=== PATIENT | female | born 1950 | race Caucasian/White ===

== ENCOUNTER 2017-07-21 07:32 | Inpatient (IN) | payer OTHER ==
[~2017-07-21] VITALS: Ht 152.4 cm; Wt 59.9 kg
[2017-07-21 07:42] VITALS: BP 166/88
--- NOTE | 2017-07-21 07:55 | NUR ---
PATIENT IN BED. C/O ABDOMINAL PAIN 05/02. VS STABLE. MD NOTIFIED. CONTINUE TO MONITOR.
--- NOTE | 2017-07-21 07:57 | NUR ---
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
[2017-07-21] MEDS ORDERED: BENA20TA PO (07:59)
[2017-07-21] MEDS ORDERED: CHOL5000 PO (07:59)
[2017-07-21] MEDS ORDERED: SYN.075 PO (07:59)
[2017-07-21] MEDS ORDERED: ASPI-1677 PO (07:59)
[2017-07-21] MEDS ORDERED: METO25TE2 PO (07:59)
[2017-07-21] MEDS ORDERED: ESCI10TA PO (07:59)
[2017-07-21] MEDS ORDERED: SINE25 PO (07:59)
[2017-07-21] MEDS ORDERED: ATOR40TA PO (07:59)
[2017-07-21] MEDS ORDERED: ALPR0.252 PO (07:59)
[2017-07-21] MEDS ORDERED: LOPE2TAB42 PO (08:05)
--- NOTE | 2017-07-21 08:36 | NUR ---
DR DAHL AT BEDSIDE.
[2017-07-21] MEDS ORDERED: ONDANSETRON 4 MG/2 ML VIAL IVP ONE (08:45)
[2017-07-21] MEDS ORDERED: fentaNYL 0.05 MG/ML VIAL IVP ONE ×2 (08:45→10:45)
[2017-07-21] MEDS ORDERED: NACL 0.9% 1,000 ML IV ONE ×2 (08:45→10:45)
[2017-07-21 09:12] LABS: BASOPHILS # (AUTO) 0.2 K/uL (0.00-0.22); BASOPHILS % (AUTO) 3.3 % (0.0-2.0); EOSINOPHILS % (AUTO) 0.1 % (0.0-4.0); HEMOGLOBIN 14.4 g/dL (12.0-16.0); LYMPHOCYTES # (AUTO) 1.7 K/uL (2.5-16.5); MEAN CORPUSCULAR HEMOGLOBIN 30 pg (27-31); MEAN CORPUSCULAR HGB CONC 33 g/dL (33-37); MEAN CORPUSCULAR VOLUME 91 fL (80-94); MONOCYTES % (AUTO) 14.7 % (1.7-9.3); NEUTROPHILS # (AUTO) 3.6 K/uL (1.8-7.7); NEUTROPHILS % (AUTO) 55.9 % (42.2-75.2); PLATELET COUNT (AUTO) 221 K/uL (140-450); RED BLOOD CELL COUNT(AUTO) 4.81 MIL/uL (4.20-5.40); RED CELL DISTRIBUTION WIDTH 12.8 % (11.6-13.7); WHITE BLOOD COUNT (AUTO) 6.5 K/uL (4.8-10.8)
[2017-07-21 09:33] LABS: ALBUMIN 3.3 g/dL (3.4-5.0); ANION GAP 17.7 (8-16); CARBON DIOXIDE 19.7 mmol/L (21-32); CREATININE 1.1 mg/dL (0.6-1.3); POTASSIUM 3.4 mmol/L (3.5-5.1); TOTAL BILIRUBIN 0.4 mg/dL (0.0-1.0)
[2017-07-21 10:07] LABS: PROTHROMBIN TIME 11.4 secs (10.8-13.4)
[2017-07-21] MEDS ORDERED: ASPIRIN 81 MG TAB.CHEW PO ONE (10:10)
--- NOTE | 2017-07-21 10:34 | NUR ---
PT RESTING ON BED;NO ACUTE DISTRESS NOTE;WILL CONTINUE TO MONITOR PT.
[2017-07-21 10:55] LABS: APPEARANCE,URINE CLEAR (CLEAR); BILIRUBIN,URINE 2+ (NEGATIVE); BLOOD, URINE 1+ (NEGATIVE); COLOR,URINE YELLOW (YELLOW); LEUKOCYTE ESTERASE ,URINE NEGATIVE (NEGATIVE); NITRITE, URINE NEGATIVE (NEGATIVE); PH,URINE 5.5 (5.0-9.0); UGLUCOSE NEGATIVE (NEGATIVE)
[2017-07-21 11:11] LABS: RBC,URINE 0-5 (RARE) /HPF (0-5); WBC,URINE 0-5 (RARE) /HPF (0-5)
[2017-07-21] MEDS ORDERED: ONDANSETRON 4 MG/2 ML VIAL IVP PRN (11:30)
[2017-07-21] MEDS ORDERED: ACETAMINOPHEN 325 MG TAB PO PRN (11:30)
[2017-07-21] MEDS: NACL 0.9% 1,000 ML IV SCH ×2 (11:30→21:35)
[2017-07-21] MEDS ORDERED: HYDROcodone/APAP 7.5/325 MG 1 TAB PO PRN (11:30)
[2017-07-21] MEDS ORDERED: NITROGLYCERIN 0.4 MG TAB SL PRN (11:35)
[2017-07-21] MEDS ORDERED: DICYCLOMINE HCL LIQUID 10 MG/5 ML UDC PO SCH (11:55)
[2017-07-21] MEDS ORDERED: LIDOCAINE VISCOUS 2% 20 ML UDC PO SCH (11:55)
[2017-07-21] MEDS ORDERED: MORPHINE SULFATE 2 MG/ML SYR IVP PRN (11:55)
[2017-07-21] MEDS ORDERED: ALUMINUM HYD/MAG/SIMETHICONE 30 ML UDC PO SCH (11:55)
--- NOTE | 2017-07-21 12:49 | NUR ---
PT LYING ON BED;SISTER AT BEDSIDE;IVF STILL INFUSING;NO ACUTE DISTRESS NOTED;WILL CONTINUE TO MONITOR PT.
--- NOTE | 2017-07-21 13:29 | NUR ---
PER SMALL STOCK FACER;WE ARE STILL WAITING FOR A BED;
[2017-07-21] MEDS ORDERED: POTASSIUM CHLORIDE 10 MEQ TABER PO SCH (13:43)
[2017-07-21 13:49] LABS: BARBITURATE, URINE NEG. ng/ml (NEG <=200); BENZODIAZEPINE, URINE POS. ng/mL (NEG <=200); CANNABINOID, URINE POS. ng/mL (NEG <=50); COCAINE, URINE NEG. ng/mL (NEG <=300); OPIATE, URINE NEG. ng/mL (NEG <=2000); PHENCYCLIDINE SCREEN,URINE NEG. ng/mL (NEG <=25)
--- NOTE | 2017-07-21 13:50 | NUR ---
ADMITTED FROM ER VIA GURNEY. AWAKE, ALERT, AND ORIENTED X4. SPEECH CLEAR. NO C/O PAIN. NO SOB, NOTED. SKIN WARM, DRY, AND INTACT. IN STABLE CONDITION. KEEP COMFORTABLE ON BED. EXPLAINED DIAGNOSIS, PLAN OF CARE, PAIN MANAGEMENT TEACHING, USE OF CALL LIGHT/BED/TV/BATHROOM. VERBALIZED UNDERSTANDING. FALL PRECAUTION APPLIED. CALL LIGHT WITHIN REACH.
[2017-07-21 13:51] LABS: CHOL/HDL RATIO 2.4 (1-4.5); FREE T4 (FREE THYROXINE) 1.51 ng/dL (0.76-1.46); MAGNESIUM 1.7 mg/dL (1.8-2.4); PHOSPHORUS 2.8 mg/dL (2.5-4.9); THYROID STIMULATING HORMONE 0.25 uIU/mL (0.34-3.74)
[2017-07-21 14:00] VITALS: BP 155/88
--- NOTE | 2017-07-21 14:01 | NUR ---
Patient will be admitted to care of DR GILL. Admited to TELE. Will go to [id number]. Belongings list completed. Report to CARMEN THOMASON.
--- NOTE | 2017-07-21 15:38 | NUR ---
DR. DOVE CAME, REVIEWED PT. CHART AND SEEN PT.. INFORMED DR. DOVE PT. FIRST DRAW OF TROP 0.091.
[2017-07-21 16:00] VITALS: BP 150/86
[2017-07-21] MEDS: KETOROLAC 30 MG/ML VIAL IVP PRN (17:27)
--- NOTE | 2017-07-21 19:08 | NUR ---
BEDSIDE REPORT GIVEN TO MARIA M MUNIZ -PADDY. IVF INFUSING WELL. IN STABLE CONDITION.
--- NOTE | 2017-07-21 19:10 | NUR ---
RECEIVED PT AWAKE TALKING TO SISTER AT BEDSIDE, VITAL SIGNS TAKEN, BP SLIGHTLY ELEVATED, WILL GIVE DUE BP MEDICATION, COMPLAINING STILL OF ABDOMINAL PAIN, SAID PREVIOUS PAIN MEDICATION TORADOL NOT RELIEVING THE PAIN, WILL INFORM DR SEGUNDO, IVF INFUSING WELL, MAINTAIN ON NPO EXCEPT MEDS, PLAN OF CARE DISCUSS, SAFETY MEASURES IN PLACE, CALL LIGHT WITHIN REACH.
[2017-07-21] MEDS ORDERED: MAG SULF 2000 MG/WATER PREMIX 50 ML IV SCH (19:25)
[2017-07-21 20:00] VITALS: BP 160/74
[2017-07-21] MEDS: ATORVASTATIN 20 MG TAB PO SCH (20:01)
[2017-07-21] MEDS: ALPRAZolam 0.25 MG TAB PO PRN (20:04)
[2017-07-21] MEDS: METOPROLOL 25 MG TAB PO SCH (20:04)
[2017-07-21] MEDS: HYDROcodone/APAP 5/325 MG 1 TAB TAB PO PRN (20:04)
[2017-07-21] MEDS: DOXEPIN 25 MG CAP PO SCH (20:06)
[2017-07-21] MEDS ORDERED: DOCUSATE SODIUM 100 MG GELCAP PO SCH (21:00)
[2017-07-21] MEDS ORDERED: ATORVASTATIN 20 MG TAB PO SCH (21:00)
--- NOTE | 2017-07-21 21:00 | NUR ---
PT VERBALIZED PAIN SUBSIDING, AMBULATED TO BR WITH ASSIST, VOIDED FREELY, ALL NEEDS ATTENDED.
[2017-07-22] VITALS: BP 135/73
[2017-07-22] MEDS: KETOROLAC 30 MG/ML VIAL IVP PRN (01:04)
--- NOTE | 2017-07-22 01:59 | NUR ---
PT AMBULATED TO BR WITH ASSIST, VOIDED FREELY, NO DIARRHEA AT THIS TIME, COMPLAINING OF NAUSEA, MEDICATED PRN WITH ZOFRAN IVP, MONITORED CLOSELY.
[2017-07-22] MEDS: NACL 0.9% 1,000 ML IV SCH ×3 (02:03→17:48)
--- NOTE | 2017-07-22 03:40 | NUR ---
PT SLEEPING, EASILY AROUSABLE, VITAL SIGNS STABLE, DENIES PAIN, IVF INFUSING WELL, MONITORED CLOSELY.
[2017-07-22 04:00] VITALS: BP 146/78
[2017-07-22] MEDS: HYDROcodone/APAP 5/325 MG 1 TAB TAB PO PRN ×3 (05:56→21:00)
[2017-07-22] MEDS: LEVOTHYROXINE 0.05 MG TAB PO SCH (05:57)
--- NOTE | 2017-07-22 06:00 | NUR ---
PT AWAKE COMPLAINING OF ABDOMINAL PAIN, NORCO FOR PAIN AND DUE SYNTHROID GIVEN, NO DIARRHEA THE WHOLE SHIFT, PT VERBALIZED FEELING HUNGRY AND HOPING SHE CAN START HAVING FOOD TODAY, WILL ENDORSE TO AM SHIFT.
[2017-07-22] MEDS ORDERED: LEVOTHYROXINE 0.075 MG TAB PO SCH (06:30)
[2017-07-22] MEDS ORDERED: LEVOTHYROXINE 0.025 MG TAB PO SCH (06:30)
--- NOTE | 2017-07-22 06:37 | NUR ---
PATIENT HAS BEEN SCREENED AND CATEGORIZED HIGH NUTRITION RISK. PATIENT WILL BE SEEN WITHIN 1-2 DAYS OF ADMISSION. 07/22/17-07/23/17 CATHERINE GARZA MS, RDN
--- NOTE | 2017-07-22 07:12 | NUR ---
PT SLEEPING, EASILY AROUSABLE, NO DISTRESS NOTED, REPORT GIVEN TO PADDY NOGUEIRA FOR CONTINUITY OF CARE. Addendum: 07/22/17 at 0721 by Ralph Graham RN PADDY BECERRA.
--- NOTE | 2017-07-22 07:13 | NUR ---
RECEIVED REPORT FROM MOBILE HOME SERVICER RN. PATIENT IS AAOX4, RESPIRATORY EFFORT EVEN AND UNLABORED. ON ROOM AIR. NO SIGNS AND SYMPTOMS OF ACUTE DISTRESS NOTED AT THIS TIME. PATIENT HAS IV TO LEFT HAND 22G INFUSING NS AT 100ML/HR. SITE IS CLEAN, DRY, PATENT AND INTACT. PATIENT STATES SHE WOULD LIKE TO TRY EATING, DOCTOR TO CHANGE NPO STATUS TO CLEAR/FULL LIQUID. DENIES ANY NAUSEA AT THIS TIME. DISCUSSED PLAN OF CARE WITH PATIENT SHE VERBALIZED UNDERSTANDING. BED IN LOWEST POSITION, SIDE RAILS UP X2, CALL LIGHT PLACED WITHIN REACH. WILL CONTINUE TO MONITOR.
[2017-07-22 07:23] LABS: ANION GAP 12.6 (8-16); CARBON DIOXIDE 25.6 mmol/L (21-32); CREATININE 0.9 mg/dL (0.6-1.3); POTASSIUM 4.2 mmol/L (3.5-5.1)
[2017-07-22 07:31] LABS: MAGNESIUM 2.4 mg/dL (1.8-2.4); PHOSPHORUS 2.5 mg/dL (2.5-4.9)
[2017-07-22 07:32] LABS: BASOPHILS # (AUTO) 0.1 K/uL (0.00-0.22); BASOPHILS % (AUTO) 2.5 % (0.0-2.0); EOSINOPHILS % (AUTO) 0.3 % (0.0-4.0); HEMATOCRIT 36.1 % (36-48); HEMOGLOBIN 12.1 g/dL (12.0-16.0); LYMPHOCYTES # (AUTO) 1.5 K/uL (2.5-16.5); MEAN CORPUSCULAR HEMOGLOBIN 31 pg (27-31); MEAN CORPUSCULAR HGB CONC 34 g/dL (33-37); MEAN CORPUSCULAR VOLUME 92 fL (80-94); MONOCYTES # (AUTO) 0.8 K/uL (0.8-1.0); MONOCYTES % (AUTO) 15.6 % (1.7-9.3); NEUTROPHILS # (AUTO) 2.7 K/uL (1.8-7.7); NEUTROPHILS % (AUTO) 51.6 % (42.2-75.2); PLATELET COUNT (AUTO) 184 K/uL (140-450); RED BLOOD CELL COUNT(AUTO) 3.95 MIL/uL (4.20-5.40); RED CELL DISTRIBUTION WIDTH 13.1 % (11.6-13.7); WHITE BLOOD COUNT (AUTO) 5.1 K/uL (4.8-10.8)
[2017-07-22 08:00] VITALS: BP 161/77
[2017-07-22] MEDS: ESCITALOPRAM 20 MG TAB PO SCH (08:54)
[2017-07-22] MEDS: PANTOPRAZOLE 40 MG INJ VIAL IVP SCH (08:54)
[2017-07-22] MEDS: ASPIRIN 81 MG TAB.CHEW PO SCH (08:55)
[2017-07-22] MEDS: METOPROLOL 25 MG TAB PO SCH ×2 (08:55→21:00)
[2017-07-22] MEDS ORDERED: BENAZEPRIL 20 MG TAB PO SCH (09:00)
[2017-07-22] MEDS ORDERED: METOPROLOL SUCCINATE 50 MG TABER PO SCH (09:00)
[2017-07-22] MEDS ORDERED: LISINOPRIL 5 MG TAB PO SCH (09:00)
--- NOTE | 2017-07-22 10:56 | NUR ---
07/22/17 RD INITIAL ASSESSMENT COMPLETED PLEASE REFER TO NUTRITION ASSESSMENT UNDER CARE ACTIVITY FOR ESTIMATED NUTRITIONAL NEEDS. RD RECOMMENDATIONS: 1. CONTINUE NPO MEDICALLY APPROPRIATE PER MD DISCRETION. 2. IF/WHEN PO FULL LIQUID DIET INITIATED (PER PROGRESS NOTE 07/22/17), RDN TO MONITOR PO INTAKES AND TOLERANCE. 3. CONSIDER ADVANCING DIET TO REGULAR TOLERATED. 4. CONSULT RDN PRN. 5. RD WILL F/U 3-5 DAYS; MODERATE RISK. CATHERINE GARZA MS, RDN
[2017-07-22 12:00] VITALS: BP 129/73
[2017-07-22 16:00] VITALS: BP 176/79
--- NOTE | 2017-07-22 17:00 | NUR ---
PATIENTS BP WAS 176/79, HAS NO SIGNS AND SYMPTOMS OF DISTRESS NOTED AT THIS TIME. MADE DOCTOR DON AWARE. ORDERS TO FOLLOW. WILL CONTINUE TO MONITOR.
[2017-07-22] MEDS ORDERED: ENALAPRILAT 2.5 MG/2 ML VIAL IVP SCH (17:10)
[2017-07-22] MEDS: ALPRAZolam 0.25 MG TAB PO PRN (17:42)
--- NOTE | 2017-07-22 19:17 | NUR ---
ENDORSED PATIENT TO PLASMA CUTTING MACHINE OPERATOR RN FOR CONTINUITY OF CARE. PATIENT IN STABLE CONDITION.
--- NOTE | 2017-07-22 19:18 | NUR ---
RECEIVED PT SITTING ON BED, VITAL SIGNS TAKEN, BP SLIGHTLY ELEVATED, ASYMPTOMATIC, DENIES ANY PAIN, NO SOB NOTED, IVF INFUSING WELL, PT VERBALIZED TOLERATING REGULAR DIET, PLAN OF CARE DISCUSSED, SAFETY MEASURES IN PLACE, CALL LIGHT WITHIN REACH, SISTER AT BEDSIDE.
[2017-07-22 20:00] VITALS: BP 160/78
[2017-07-22] MEDS: DOXEPIN 25 MG CAP PO SCH (21:00)
[2017-07-22] MEDS: ATORVASTATIN 20 MG TAB PO SCH (21:00)
--- NOTE | 2017-07-22 21:00 | NUR ---
DUE MEDS GIVEN, MEDICATED PRN FOR ABDOMINAL PAIN WITH NORCO, ALL NEEDS ATTENDED.
--- NOTE | 2017-07-22 23:40 | NUR ---
PT AWAKE, VITAL SIGNS STABLE, DENIES ANY PAIN, COMPLAINING OF SORE THROAT, OCCASIONAL INTERMITTENT DRY COUGH NOTED, PROVIDED WITH WARM TEA PER REQUEST, CONTINUE TO MONITOR CLOSELY.
[2017-07-23] VITALS: BP 146/75
[2017-07-23] MEDS: KETOROLAC 30 MG/ML VIAL IVP PRN (01:15)
[2017-07-23] MEDS: NACL 0.9% 1,000 ML IV SCH (01:16)
[2017-07-23] MEDS: ALPRAZolam 0.25 MG TAB PO PRN (03:35)
--- NOTE | 2017-07-23 03:43 | NUR ---
PT IS ANXIOUS, CANNOT SLEEP, MEDICATED WITH XANAX PRN, VITAL SIGNS STABLE, NO SOB NOTED, DENIES ANY PAIN, IVF INFUSING WELL, MONITORED CLOSELY.
[2017-07-23 04:00] VITALS: BP 127/63
[2017-07-23] MEDS: LEVOTHYROXINE 0.05 MG TAB PO SCH (05:46)
--- NOTE | 2017-07-23 05:50 | NUR ---
AM LABS DRAWN, DUE SYNTHROID GIVEN, PT WENT BACK TO SLEEP, NO DISTRESS NOTED, IVF INFUSING WELL, MONITORED CLOSELY.
--- NOTE | 2017-07-23 07:20 | NUR ---
PT SLEEPING, NO SIGNS OF DISTRESS, NO EPISODE OF DIARRHEA OR N/V THE WHOLE SHIFT, REPORT GIVEN TO PADDY BECERRA FOR CONTINUITY OF CARE.
--- NOTE | 2017-07-23 07:21 | NUR ---
RECEIVED REPORT FROM TRUCK HOP RN. PATIENT IS AAOX4, RESPIRATORY EFFORT EVEN AND UNLABORED. ON ROOM AIR. NO SIGNS AND SYMPTOMS OF ACUTE DISTRESS NOTED AT THIS TIME. PATIENT HAS IV TO LEFT HAND 22G INFUSING NS AT 100ML/HR. SITE IS CLEAN, DRY, PATENT AND INTACT. DENIES ANY NAUSEA AT THIS TIME. DISCUSSED PLAN OF CARE WITH PATIENT SHE VERBALIZED UNDERSTANDING. BED IN LOWEST POSITION, SIDE RAILS UP X2, CALL LIGHT PLACED WITHIN REACH. WILL CONTINUE TO MONITOR.
[2017-07-23 08:00] VITALS: BP 137/75
[2017-07-23] MEDS ORDERED: BENAZEPRIL 20 MG TAB PO SCH (09:00)
[2017-07-23] MEDS: ASPIRIN 81 MG TAB.CHEW PO SCH (09:20)
[2017-07-23] MEDS: ESCITALOPRAM 20 MG TAB PO SCH (09:21)
[2017-07-23] MEDS: METOPROLOL 25 MG TAB PO SCH (09:22)
[2017-07-23] MEDS: PANTOPRAZOLE 40 MG INJ VIAL IVP SCH (09:27)
[2017-07-23 12:00] VITALS: BP 135/70
[2017-07-23] MEDS ORDERED: BENA20TA5 PO (15:18)
--- NOTE | 2017-07-23 16:00 | NUR ---
DISCHARGE ORDERS ARE IN PLACE. DR OCHOA EXPLAINED TO PATIENT TO FOLLOW UP WITH PRIMARY CARE PHYSICIAN AND THAT HE IS GIVING HER A PRESCRIPTION TO A NEW DOSE OF BENAZEPRIL. I ALSO EDUCATED PATIENT ON SIGNS AND SYMPTOMS TO LOOK OUT FOR AND SEEK EMERGENCY MEDICAL ATTENTION FOR. PATIENT VERBALIZED UNDERSTANDING TO INSTRUCTIONS. IV FLUIDS DISCONTINUED AT THIS TIME. IV SITE REMOVED. CATHETER INTACT. SITE IS CLEAN AND DRY. SHOWED PATIENT PRESCRIPTION AND ALL HER PAPERWORK. ALL BELONGINGS WITH PATIENT. NO SIGNS AND SYMPTOMS OF ACUTE DISTRESS NOTED AT THIS TIME. WILL WALK OUT WITH PATIENT. SISTER DRIVING HER HOME.
== END 2017-07-23 16:00 | disposition home or self-care (01) | DRG 280 ==
LOC: MED 07:32 → MTU 11:01
PROVIDERS: ADMIT Family Medicine Sports Medicine; ATTEND Family Medicine Sports Medicine
DX: I21.A1 Myocardial infarction type 2 (principal); N17.0 Acute kidney failure with tubular necrosis; E44.1 Mild protein-calorie malnutrition; I69.354 Hemiplegia and hemiparesis following cerebral infarction affecting left non-dominant side; I16.0 Hypertensive urgency; A08.4 Viral intestinal infection, unspecified; E11.9 Type 2 diabetes mellitus without complications; E86.0 Dehydration; E05.90 Thyrotoxicosis, unspecified without thyrotoxic crisis or storm; I10 Essential (primary) hypertension; E83.42 Hypomagnesemia; F32.9 Major depressive disorder, single episode, unspecified; E87.6 Hypokalemia; Z88.1 Allergy status to other antibiotic agents; Z68.25 Body mass index [BMI] 25.0-25.9, adult; Z88.6 Allergy status to analgesic agent
CPT/HCPCS: 36415; 71010; 80048; 80053; 80305; 81001; 82140; 82150; 83036; 83605; 83690; 83735; 83880; 84100; 84439; 84443; 84484; 85025; 85610; 85730; 87040; 87081; 87086; 93005; 96361; 96374; 96375; 96376; 99285; C1758; C9113; G0482; J1885; J2405; J3010; J3475; J3490; J7030

== ENCOUNTER 2018-01-01 17:22 | Emergency (ER) | payer OTHER ==
[~2018-01-01] VITALS: Ht 152.4 cm; Wt 63.5 kg
[~2018-01-01 17:22] MED LIST: ALPR0.252 PO; ASPI-1677 PO; ATOR40TA PO; BENA20TA5 PO; CHOL5000 PO; ESCI10TA PO; METO25TE2 PO; SINE25 PO; SYN.075 PO
[2018-01-01 17:25] VITALS: BP 119/53
[2018-01-01] MEDS ORDERED: NACL 0.9% 1,000 ML IV SCH (18:04)
[2018-01-01] MEDS ORDERED: PANTOPRAZOLE 40 MG INJ VIAL IVP ONE (18:05)
[2018-01-01] MEDS ORDERED: METOCLOPRAMIDE 10 MG/2 ML INJ VIAL IVP ONE (18:05)
[2018-01-01] MEDS ORDERED: FAMOTIDINE 20 MG/2 ML VIAL IVP ONE (18:05)
[2018-01-01 18:52] LABS: BASOPHILS # (AUTO) 0.1 K/uL (0.00-0.22); BASOPHILS % (AUTO) 0.5 % (0.0-2.0); EOSINOPHILS % (AUTO) 0.1 % (0.0-4.0); HEMATOCRIT 40.2 % (36-48); HEMOGLOBIN 13.2 g/dL (12.0-16.0); LYMPHOCYTES # (AUTO) 1.5 K/uL (2.5-16.5); MEAN CORPUSCULAR HEMOGLOBIN 30 pg (27-31); MEAN CORPUSCULAR HGB CONC 33 g/dL (33-37); MEAN CORPUSCULAR VOLUME 90.1 fL (80-94); MONOCYTES # (AUTO) 0.5 K/uL (0.8-1.0); MONOCYTES % (AUTO) 4.2 % (1.7-9.3); NEUTROPHILS # (AUTO) 8.7 K/uL (1.8-7.7); NEUTROPHILS % (AUTO) 81.2 % (42.2-75.2); PLATELET COUNT (AUTO) 288 K/uL (140-450); RED BLOOD CELL COUNT(AUTO) 4.46 MIL/uL (4.20-5.40); RED CELL DISTRIBUTION WIDTH 13.6 % (11.6-13.7); WHITE BLOOD COUNT (AUTO) 10.8 K/uL (4.8-10.8)
[2018-01-01 19:35] VITALS: BP 110/63
[2018-01-01 19:37] LABS: PROTHROMBIN TIME 10.6 secs (10.8-13.4)
[2018-01-01 19:44] LABS: ANION GAP 13.6 (8-16); CARBON DIOXIDE 26.9 mmol/L (21-32); CREATININE 1.4 mg/dL (0.6-1.3); POTASSIUM 3.5 mmol/L (3.5-5.1)
[2018-01-01 19:50] LABS: ALBUMIN 3.4 g/dL (3.4-5.0); TOTAL BILIRUBIN 0.4 mg/dL (0.0-1.0)
== END 2018-01-01 19:35 | disposition home or self-care (01) ==
LOC: MED 17:22
DX: K64.4 Residual hemorrhoidal skin tags (principal); E86.0 Dehydration; I10 Essential (primary) hypertension; Z86.73 Personal history of transient ischemic attack (TIA), and cerebral infarction without residual deficits; Z88.1 Allergy status to other antibiotic agents
CPT/HCPCS: 36415; 74176; 80053; 85025; 85610; 85730; 86886; 86900; 86901; 93005; 96361; 96374; 96375; 99285; C9113; J2765; J3490; J7030